=== PATIENT | female | born 1950 | race American Indian/Alaskan Native ===

== ENCOUNTER 2016-10-17 13:44 | Outpatient (CLI) | payer MEDICARE ==
--- NOTE | 2016-10-17 14:40 | Mammography Report ---
BILATERAL DIGITAL SCREENING MAMMOGRAM with CAD: 10/17/16 13:44:00 CLINICAL: Routine screening. COMPARISON:06/28/15 FINDINGS: The breasts are almost entirely fatty. A subtle new left outer asymmetry is identified only on the CC view.No architectural distortion or suspicious calcifications.The right breast is negative. IMPRESSION: Left asymmetry requiring further workup. BI-RADS CATEGORY: 0 -- Additional Imaging Evaluation Required RECOMMENDATION: Recall for left mediolateral and spot compression CC views and left breast ultrasound if needed. ACR BI-RADS MAMMOGRAPHIC CODES: 0 = Needs additional imaging evaluation; 1 = Negative; 2 = Benign; 3 = Probably benign; 4 = Suspicious; 5 = Malignant; 6 = Known biopsy-proven malignancy COMMENT: 1. Dense breast tissue, i.e., adenosis, fibrocystic changes, etc., may obscure an underlying neoplasm. 2. Approximately 10% of cancers are not detected with mammography. 3. A negative mammography report should not delay biopsy if a clinically suspicious mass is present. COMMENT: Patient follow-up letters are generated via our [employer] application.
== END 2016-10-17 13:45 | disposition home or self-care (01) ==
LOC: SPVWC 13:44
PROVIDERS: ATTEND Internal Medicine
DX: Z12.31 Encounter for screening mammogram for malignant neoplasm of breast (principal)
CPT/HCPCS: 77067; G0202

== ENCOUNTER 2016-11-07 15:13 | Outpatient (CLI) | payer MEDICARE ==
--- NOTE | 2016-11-07 15:37 | Mammography Report ---
LEFT DIGITAL DIAGNOSTIC MAMMOGRAM : 11/07/16 15:13:00 CLINICAL: Recalled for asymmetry. COMPARISON:10/17/16 screening FINDINGS: ML and spot compression CC views were performed. Satisfactory effacement of the previously described asymmetry on the spot view. Negative lateral view. IMPRESSION: Negative Mammogram. BI-RADS CATEGORY: 1 -- Negative RECOMMENDATION: Routine mammographic screening in one year. ACR BI-RADS MAMMOGRAPHIC CODES: 0 = Needs additional imaging evaluation; 1 = Negative; 2 = Benign; 3 = Probably benign; 4 = Suspicious; 5 = Malignant; 6 = Known biopsy-proven malignancy COMMENT: 1. Dense breast tissue, i.e., adenosis, fibrocystic changes, etc., may obscure an underlying neoplasm. 2. Approximately 10% of cancers are not detected with mammography. 3. A negative mammography report should not delay biopsy if a clinically suspicious mass is present. COMMENT: Patient follow-up letters are generated via our [employer] application.
== END 2016-11-07 15:14 | disposition home or self-care (01) ==
LOC: SPVWC 15:13
PROVIDERS: ATTEND Internal Medicine
DX: R92.8 Other abnormal and inconclusive findings on diagnostic imaging of breast (principal)
CPT/HCPCS: G0206-LT

== ENCOUNTER 2017-12-09 08:33 | Outpatient (CLI) | payer MEDICARE ==
--- NOTE | 2017-12-10 09:30 | Mammography Report ---
BILATERAL DIGITAL SCREENING MAMMOGRAM with CAD: 12/09/17 08:33:00 CLINICAL: Routine screening. COMPARISON:11/07/16 FINDINGS: The breasts are almost entirely fatty. No mass, architectural distortion or suspicious calcifications. IMPRESSION: No mammographic evidence of malignancy. BI-RADS CATEGORY: 1 - - Negative RECOMMENDATION: Routine mammographic screening in one year. COMMENT: Patient follow-up letters are generated by our [employer] application.
== END 2017-12-09 08:34 | disposition home or self-care (01) ==
LOC: SPVWC 08:33
PROVIDERS: ATTEND Internal Medicine
DX: Z12.31 Encounter for screening mammogram for malignant neoplasm of breast (principal)
CPT/HCPCS: 77067